=== PATIENT | female | born 1945 | race Hispanic/Latino ===

== ENCOUNTER 2019-08-16 11:16 | Emergency (ER) | payer OTHER ==
[~2019-08-16] VITALS: Ht 157.5 cm; Wt 68.9 kg
[~2019-08-16 11:16] MED LIST: BONIVA150 MG PO; DAILY VITAMIN1 EAC3 PO; DIOVAN320 MG PO; NIFEDIPINE ER30 MG PO; biotin PO
--- NOTE | 2019-08-16 11:53 | NUR ---
NOTIFIED COST ACCOUNTANT TO PAGE ULTRASOUND FOR VENOUS DOPPLER FOR RIGHT UPPER EXTREMITY.
[2019-08-16] MEDS ORDERED: HYZAAR 100-12.1 EACH PO (11:58)
--- NOTE | 2019-08-16 11:59 | NUR ---
PT STATES SHE HAS NOT TAKEN HER BP MEDS THIS MORNING PT STATES SHE TAKES LOSARTAN/HZTZ 100-12.5 MG 1 TAB QDAILY IN THE AM
[2019-08-16] MEDS ORDERED: LOSARTAN POTASSIUM 100 MG TAB PO ONE (12:30)
[2019-08-16 13:01] VITALS: BP 169/67
== END 2019-08-16 13:05 | disposition home or self-care (01) ==
LOC: ER 11:16
DX: R60.9 Edema, unspecified (principal); F03.90 Unspecified dementia, unspecified severity, without behavioral disturbance, psychotic disturbance, mood disturbance, and anxiety; I10 Essential (primary) hypertension; E78.5 Hyperlipidemia, unspecified
CPT/HCPCS: 93971; 99283

== ENCOUNTER 2021-10-18 12:39 | Inpatient (IN) | payer OTHER ==
[~2021-10-18] VITALS: Ht 157.5 cm; Wt 68.9 kg
[~2021-10-18 12:39] MED LIST changes: +HYZAAR 100-12.1 EACH PO
[2021-10-18 14:13] LABS: BASOPHILS # (AUTO) 0.1 (0.0-0.1); BASOPHILS % 0.5 % (0.0-1.0); EOSINOPHILS # (AUTO) 0.1 (0.0-0.4); EOSINOPHILS % 0.7 % (0.0-6.0); HEMATOCRIT 36.7 % (34.2-44.1); LYMPHOCYTES # (AUTO) 3.1 (1.0-3.2); LYMPHOCYTES % 26.4 % (18.0-39.1); MEAN CORPUSCULAR HEMOGLOBIN 29.6 pg (28-32); MEAN CORPUSCULAR HGB CONC 32.7 g/dL (31-35); MEAN CORPUSCULAR VOLUME 90.4 fL (81-99); MONOCYTES # (AUTO) 1.1 (0.2-0.8); MONOCYTES % 9.6 % (4.4-11.3); NEUTROPHILS # (AUTO) 7.2 (2.1-6.9); NEUTROPHILS % 62.5 % (38.7-80.0); PLATELET COUNT 275 x10e3/uL (140-360); RED BLOOD COUNT 4.06 x10e6/uL (3.6-5.1)
[2021-10-18 14:37] LABS: ALBUMIN 3.9 g/dL (3.5-5.0); ALBUMIN/GLOBULIN RATIO 0.8 (0.8-2.0); ANION GAP 18.9 mmol/L (8-16); CALCIUM 10.3 mg/dL (8.4-10.2); CREATININE, SERUM 0.92 mg/dL (0.57-1.11); POTASSIUM 4.9 mmol/L (3.5-5.1)
[2021-10-18 14:50] LABS: CREATINE KINASE MB 1.8 ng/mL (0-5.0)
[2021-10-18] MEDS ORDERED: LEVETIRACETAM 500MG/5ML VIAL 1,000 MG in SODIUM CHLORIDE 0.9% 100 ML IV ONE (16:00)
[2021-10-18 18:13] LABS: CLARITY,URINE HAZY (CLEAR); COLOR,URINE YELLOW (YELLOW); KETONES,URINE NEGATIVE (NEGATIVE); LEUKOCYTE ESTERASE ,URINE NEGATIVE (NEGATIVE); NITRITE,URINE POSITIVE (NEGATIVE); PROTEIN,URINE DIPSTICK NEGATIVE (NEGATIVE); URINE UROBILINOGEN 0.2 mg/dL (0.2 - 1)
[2021-10-18 18:28] LABS: BACTERIA,URINE MANY /HPF; RBC,URINE 0-5 /HPF (0-5); WBC,URINE (MAN) 0-5 /HPF (0-5)
[2021-10-18] MEDS ORDERED: HYDROCHLOROTH12.5 MG PO (21:10)
[2021-10-18] MEDS ORDERED: CALCIUM 600-D31 EAC1 PO (21:10)
[2021-10-18] MEDS ORDERED: NAMENDA10 MG PO (21:10)
[2021-10-18] MEDS ORDERED: OXYBUTYNIN CHLOR5 MG PO (21:10)
[2021-10-18] MEDS ORDERED: ATORVASTATIN CA10 MG PO (21:10)
[2021-10-18] MEDS ORDERED: ASPIRIN81 MG PO (21:10)
[2021-10-18] MEDS ORDERED: ARICEPT10 MG PO (21:10)
[2021-10-18] MEDS ORDERED: LEXAPRO5 MG PO (21:10)
[2021-10-18] MEDS ORDERED: QUETIAPINE FUMA25 MG PO (21:10)
[2021-10-18] MEDS ORDERED: DIOVAN160 MG PO (21:10)
[2021-10-18] MEDS ORDERED: NIFEDIPINE ER30 M1 PO (21:10)
[2021-10-18] MEDS ORDERED: DIOVAN HCT 3201 EAC1 PO (21:33)
[2021-10-18] MEDS: MEMANTINE 10 MG TAB PO SCH (22:01)
[2021-10-18] MEDS: NIFEDIPINE CR 30 MG TAB PO SCH (22:01)
[2021-10-18] MEDS: ATORVASTATIN 10 MG TAB PO SCH (22:01)
[2021-10-18] MEDS: DONEPEZIL HCL 5 MG TAB PO SCH (22:02)
[2021-10-18] MEDS: QUETIAPINE FUMARATE 25 MG TAB PO SCH (22:02)
[2021-10-18 22:05] VITALS: BP 131/55
[2021-10-19] VITALS (7 sets, daily range): BP systolic 127–148; BP diastolic 50–84
[2021-10-19] MEDS ORDERED: SODIUM CHLORIDE 0.9% 250ML 250 ML ONE (00:43)
[2021-10-19] MEDS: CEFTRIAXONE 1 GM in SODIUM CHLORIDE 0.9% 50ML 50 ML IV SCH ×2 (01:00→07:33)
[2021-10-19 05:01] LABS: BASOPHILS % 0.5 % (0.0-1.0); EOSINOPHILS # (AUTO) 0.1 (0.0-0.4); EOSINOPHILS % 1.7 % (0.0-6.0); HEMATOCRIT 32.9 % (34.2-44.1); LYMPHOCYTES # (AUTO) 2.8 (1.0-3.2); LYMPHOCYTES % 35.8 % (18.0-39.1); MEAN CORPUSCULAR HEMOGLOBIN 30.1 pg (28-32); MEAN CORPUSCULAR HGB CONC 33.4 g/dL (31-35); MEAN CORPUSCULAR VOLUME 89.9 fL (81-99); MONOCYTES % 12.2 % (4.4-11.3); NEUTROPHILS # (AUTO) 3.9 (2.1-6.9); NEUTROPHILS % 49.5 % (38.7-80.0); PLATELET COUNT 255 x10e3/uL (140-360); RED BLOOD COUNT 3.66 x10e6/uL (3.6-5.1); RED CELL DISTRIBUTION WIDTH 13.9 % (11.7-14.4)
[2021-10-19 05:36] LABS: ALBUMIN 3.1 g/dL (3.5-5.0); ALBUMIN/GLOBULIN RATIO 0.8 (0.8-2.0); ANION GAP 14.1 mmol/L (8-16); CALCIUM 9.4 mg/dL (8.4-10.2); CHOL/HDL RATIO 2.2 (3.0-3.6); CREATININE, SERUM 0.83 mg/dL (0.57-1.11); POTASSIUM 3.1 mmol/L (3.5-5.1)
[2021-10-19 06:16] LABS: CREATINE KINASE MB 1.3 ng/mL (0-5.0)
[2021-10-19] MEDS: OXYBUTYNIN CHLORIDE 5 MG TAB PO SCH (07:34)
[2021-10-19] MEDS: ASPIRIN 81 MG CHEW TAB PO SCH (07:34)
[2021-10-19] MEDS: DONEPEZIL HCL 5 MG TAB PO SCH ×2 (07:34→15:44)
[2021-10-19] MEDS: MEMANTINE 10 MG TAB PO SCH ×2 (07:36→15:44)
[2021-10-19] MEDS: ESCITALOPRAM OXALATE 10 MG TAB PO SCH (07:36)
[2021-10-19] MEDS: VALSARTAN 160 MG TAB PO SCH (07:45)
[2021-10-19] MEDS: HYDROCHLOROTHIAZIDE 25 MG TAB PO SCH (07:46)
[2021-10-19] MEDS ORDERED: GADOBENATE DIMEGLUMINE 1 ML IV ONE (10:16)
[2021-10-19] MEDS ORDERED: POTASSIUM CHLORIDE 10MEQ EA PO ONE (11:00)
[2021-10-19 14:35] LABS: CREATINE KINASE MB 1.6 ng/mL (0-5.0)
[2021-10-19] MEDS: NIFEDIPINE CR 30 MG TAB PO SCH (20:45)
[2021-10-19] MEDS: QUETIAPINE FUMARATE 25 MG TAB PO SCH (20:45)
[2021-10-19] MEDS: ATORVASTATIN 10 MG TAB PO SCH (20:45)
[2021-10-20] VITALS (7 sets, daily range): BP systolic 126–149; BP diastolic 49–69
[2021-10-20] MEDS ORDERED: POTASSIUM CHLORIDE 10MEQ EA PO NR (09:00)
[2021-10-20 09:30] LABS: BASOPHILS # (AUTO) 0.1 (0.0-0.1); BASOPHILS % 0.6 % (0.0-1.0); EOSINOPHILS # (AUTO) 0.1 (0.0-0.4); EOSINOPHILS % 0.7 % (0.0-6.0); HEMATOCRIT 35.7 % (34.2-44.1); HEMOGLOBIN 11.3 g/dL (12.0-16.0); LYMPHOCYTES # (AUTO) 2.1 (1.0-3.2); LYMPHOCYTES % 24.5 % (18.0-39.1); MEAN CORPUSCULAR HGB CONC 31.7 g/dL (31-35); MEAN CORPUSCULAR VOLUME 91.8 fL (81-99); MONOCYTES # (AUTO) 0.8 (0.2-0.8); MONOCYTES % 9.7 % (4.4-11.3); NEUTROPHILS # (AUTO) 5.6 (2.1-6.9); NEUTROPHILS % 64.4 % (38.7-80.0); PLATELET COUNT 261 x10e3/uL (140-360); RED BLOOD COUNT 3.89 x10e6/uL (3.6-5.1); RED CELL DISTRIBUTION WIDTH 14.2 % (11.7-14.4)
[2021-10-20] MEDS: ESCITALOPRAM OXALATE 10 MG TAB PO SCH (09:43)
[2021-10-20] MEDS: OXYBUTYNIN CHLORIDE 5 MG TAB PO SCH (09:43)
[2021-10-20] MEDS: LEVETIRACETAM 500 MG TAB PO SCH ×2 (09:43→17:16)
[2021-10-20] MEDS: VALSARTAN 160 MG TAB PO SCH (09:43)
[2021-10-20] MEDS: MEMANTINE 10 MG TAB PO SCH ×2 (09:43→17:16)
[2021-10-20] MEDS: ASPIRIN 81 MG CHEW TAB PO SCH (09:43)
[2021-10-20] MEDS: HYDROCHLOROTHIAZIDE 25 MG TAB PO SCH (09:43)
[2021-10-20] MEDS: DONEPEZIL HCL 5 MG TAB PO SCH ×2 (09:43→17:16)
[2021-10-20 10:08] LABS: ANION GAP 11.3 mmol/L (8-16); CALCIUM 10.1 mg/dL (8.4-10.2); CREATININE, SERUM 0.96 mg/dL (0.57-1.11); POTASSIUM 3.3 mmol/L (3.5-5.1)
[2021-10-20] MEDS: NIFEDIPINE CR 30 MG TAB PO SCH (21:14)
[2021-10-20] MEDS: QUETIAPINE FUMARATE 25 MG TAB PO SCH (21:14)
[2021-10-20] MEDS: ATORVASTATIN 10 MG TAB PO SCH (21:14)
[2021-10-21 00:38] VITALS: BP 135/47
[2021-10-21 05:35] VITALS: BP 137/54
[2021-10-21 08:00] VITALS: BP 126/58
[2021-10-21 08:14] VITALS: BP 126/58
[2021-10-21] MEDS: DONEPEZIL HCL 5 MG TAB PO SCH (09:44)
[2021-10-21] MEDS: VALSARTAN 160 MG TAB PO SCH (09:45)
[2021-10-21] MEDS: OXYBUTYNIN CHLORIDE 5 MG TAB PO SCH (09:45)
[2021-10-21] MEDS: ASPIRIN 81 MG CHEW TAB PO SCH (09:45)
[2021-10-21] MEDS: ESCITALOPRAM OXALATE 10 MG TAB PO SCH (09:46)
[2021-10-21] MEDS: LEVETIRACETAM 500 MG TAB PO SCH (09:46)
[2021-10-21] MEDS: HYDROCHLOROTHIAZIDE 25 MG TAB PO SCH (09:46)
[2021-10-21] MEDS: MEMANTINE 10 MG TAB PO SCH (09:47)
== END 2021-10-21 12:48 | disposition home or self-care (01) | DRG 373 ==
LOC: ER 13:44 → ERHOLD 16:03 → IMCU 20:04 → MED/SURG3 10-20 20:44
PROVIDERS: ADMIT Internal Medicine; ATTEND Internal Medicine
DX: B69.0 Cysticercosis of central nervous system (principal); G30.9 Alzheimer's disease, unspecified; F02.80 Dementia in other diseases classified elsewhere, unspecified severity, without behavioral disturbance, psychotic disturbance, mood disturbance, and anxiety; I10 Essential (primary) hypertension; E78.5 Hyperlipidemia, unspecified; Z88.2 Allergy status to sulfonamides
CPT/HCPCS: 36415; 70450; 70553; 71046; 80048; 80053; 80061; 81001; 82550; 82553; 82607; 82746; 84443; 84484; 85025; 93005; 93306; 93880; 94799; 99284; J0696; J7050; U0002

== ENCOUNTER → 2021-11-17 | Outpatient (CLI) | payer OTHER ==
[~2021-11-17] MED LIST changes: +ARICEPT10 MG PO; +ASPIRIN81 MG PO; +ATORVASTATIN CA10 MG PO; +CALCIUM 600-D31 EAC1 PO; +DIOVAN HCT 3201 EAC1 PO; +DIOVAN160 MG PO; +GADOBENATE DIMEGLUMINE 1 ML IV ONE; +HYDROCHLOROTH12.5 MG PO; +LEXAPRO5 MG PO; +LORAZEPAM INJ 2 MG/ML VIAL ONE; +NAMENDA10 MG PO; +NIFEDIPINE ER30 M1 PO; +OXYBUTYNIN CHLOR5 MG PO; +QUETIAPINE FUMA25 MG PO
[2021-11-17 10:43] LABS: CREATININE, SERUM 0.82 mg/dL (0.57-1.11)
== END ==
LOC: MRI 09:57
PROVIDERS: ATTEND Pediatrics
DX: G30.9 Alzheimer's disease, unspecified (principal); G93.40 Encephalopathy, unspecified; R29.6 Repeated falls; R44.3 Hallucinations, unspecified; R26.81 Unsteadiness on feet; R45.4 Irritability and anger; B69.0 Cysticercosis of central nervous system; R56.9 Unspecified convulsions
CPT/HCPCS: 36415; 70553; 82565; 84520; J2060

== ENCOUNTER 2021-11-21 12:48 | Inpatient (IN) | payer OTHER ==
[~2021-11-21] VITALS: Ht 157.5 cm; Wt 68.9 kg
[~2021-11-21 12:48] MED LIST changes: -GADOBENATE DIMEGLUMINE 1 ML IV ONE; -LORAZEPAM INJ 2 MG/ML VIAL ONE
[2021-11-21] MEDS ORDERED: ACETAMINOPHEN 325 MG TAB PO NR (13:00)
[2021-11-21] MEDS ORDERED: CEFTRIAXONE 1 GM VIAL IM ONE (13:15)
[2021-11-21] MEDS ORDERED: ACETAMINOPHEN 325 MG SUPP PR ONE (13:15)
[2021-11-21] MEDS ORDERED: SODIUM CHLORIDE 0.9% 1000ML 1,000 ML IV SCH (13:15)
[2021-11-21] MEDS ORDERED: SODIUM CHLORIDE 0.9% 100 ML ONE (13:23)
[2021-11-21 13:25] LABS: BASOPHILS % 0.5 % (0.0-1.0); EOSINOPHILS % 0.4 % (0.0-6.0); HEMATOCRIT 36.1 % (34.2-44.1); HEMOGLOBIN 11.6 g/dL (12.0-16.0); LYMPHOCYTES % 24.3 % (18.0-39.1); MEAN CORPUSCULAR HEMOGLOBIN 29.6 pg (28-32); MEAN CORPUSCULAR HGB CONC 32.1 g/dL (31-35); MEAN CORPUSCULAR VOLUME 92.1 fL (81-99); MONOCYTES # (AUTO) 1.1 (0.2-0.8); MONOCYTES % 12.6 % (4.4-11.3); NEUTROPHILS # (AUTO) 5.2 (2.1-6.9); NEUTROPHILS % 61.8 % (38.7-80.0); PLATELET COUNT 239 x10e3/uL (140-360); RED BLOOD COUNT 3.92 x10e6/uL (3.6-5.1); RED CELL DISTRIBUTION WIDTH 14.8 % (11.7-14.4)
[2021-11-21] MEDS ORDERED: CEFTRIAXONE 1 GM in SODIUM CHLORIDE 0.9% 50ML 50 ML IV ONE (13:30)
[2021-11-21 13:37] LABS: CLARITY,URINE CLOUDY (CLEAR); COLOR,URINE YELLOW (YELLOW); KETONES,URINE NEGATIVE (NEGATIVE); LEUKOCYTE ESTERASE ,URINE LARGE (NEGATIVE); NITRITE,URINE POSITIVE (NEGATIVE); PROTEIN,URINE DIPSTICK 2+ (NEGATIVE); URINE UROBILINOGEN 0.2 mg/dL (0.2 - 1)
[2021-11-21 13:48] LABS: ALBUMIN 3.2 g/dL (3.5-5.0); ALBUMIN/GLOBULIN RATIO 0.8 (0.8-2.0); ANION GAP 16.4 mmol/L (8-16); BACTERIA,URINE MANY /HPF; CALCIUM 9.8 mg/dL (8.4-10.2); CREATININE, SERUM 0.96 mg/dL (0.57-1.11); EPITHELIAL CELLS,URINE FEW /LPF; POTASSIUM 3.4 mmol/L (3.5-5.1); WBC,URINE (MAN) 21-50 /HPF (0-5)
[2021-11-21] MEDS ORDERED: DIOVAN160 MG PO (15:35)
[2021-11-21] MEDS ORDERED: LEVETIRACETAM500 MG PO (15:35)
[2021-11-21] MEDS ORDERED: HYDROCHLOROTHIA25 MG PO (15:35)
[2021-11-21] MEDS ORDERED: FOLIC ACID0.4 MG PO (15:36)
[2021-11-21] MEDS ORDERED: ATORVASTATIN CA10 MG PO (15:36)
[2021-11-21] MEDS ORDERED: ASPIRIN81 MG PO (15:36)
[2021-11-21] MEDS ORDERED: QUETIAPINE FUMA25 MG PO (15:36)
[2021-11-21] MEDS ORDERED: K DUR10 MEQ PO (15:37)
[2021-11-21 20:00] VITALS: BP 128/78
[2021-11-21 22:00] VITALS: BP 128/78
[2021-11-22] VITALS (9 sets, daily range): BP systolic 95–137; BP diastolic 50–111
[2021-11-22 05:29] LABS: BASOPHILS % 0.5 % (0.0-1.0); EOSINOPHILS % 0.1 % (0.0-6.0); HEMOGLOBIN 10.5 g/dL (12.0-16.0); LYMPHOCYTES # (AUTO) 1.9 (1.0-3.2); LYMPHOCYTES % 25.3 % (18.0-39.1); MEAN CORPUSCULAR HEMOGLOBIN 29.7 pg (28-32); MEAN CORPUSCULAR HGB CONC 33.9 g/dL (31-35); MEAN CORPUSCULAR VOLUME 87.8 fL (81-99); MONOCYTES # (AUTO) 1.2 (0.2-0.8); MONOCYTES % 15.7 % (4.4-11.3); NEUTROPHILS # (AUTO) 4.3 (2.1-6.9); PLATELET COUNT 221 x10e3/uL (140-360); RED BLOOD COUNT 3.53 x10e6/uL (3.6-5.1); RED CELL DISTRIBUTION WIDTH 14.7 % (11.7-14.4)
[2021-11-22 05:53] LABS: ANION GAP 13.1 mmol/L (8-16); CALCIUM 9.8 mg/dL (8.4-10.2); CREATININE, SERUM 0.77 mg/dL (0.57-1.11); POTASSIUM 3.1 mmol/L (3.5-5.1)
[2021-11-22] MEDS ORDERED: POTASSIUM CHLORIDE 10MEQ EA PO SCH (09:00)
[2021-11-22] MEDS ORDERED: LEVETIRACETAM 500 MG TAB PO SCH (09:00)
[2021-11-22] MEDS ORDERED: DONEPEZIL HCL 5 MG TAB PO SCH (09:00)
[2021-11-22] MEDS ORDERED: MEMANTINE 10 MG TAB PO SCH (09:00)
[2021-11-22] MEDS: CEFEPIME 1 GM in SODIUM CHLORIDE 0.9% 50ML 50 ML IV SCH ×2 (09:48→21:06)
[2021-11-22] MEDS ORDERED: SODIUM CHLORIDE 0.9% 250ML 250 ML ONE (09:57)
[2021-11-22] MEDS ORDERED: ACETAMINOPHEN 650 MG SUPP PR PRN (10:15)
[2021-11-22] MEDS: ASPIRIN 81 MG CHEW TAB PO SCH (14:42)
[2021-11-22] MEDS: OXYBUTYNIN CHLORIDE 5 MG TAB PO SCH (14:42)
[2021-11-22] MEDS: VALSARTAN 160 MG TAB PO SCH (14:43)
[2021-11-22] MEDS ORDERED: ATORVASTATIN 10 MG TAB PO SCH (21:00)
[2021-11-22] MEDS: DONEPEZIL HCL 5 MG TAB PO SCH (21:00)
[2021-11-22] MEDS ORDERED: QUETIAPINE FUMARATE 25 MG TAB PO SCH (21:00)
[2021-11-22] MEDS ORDERED: FOLIC ACID 1 MG TAB PO SCH (21:00)
[2021-11-22] MEDS: LEVETIRACETAM 500 MG TAB PO SCH (21:08)
[2021-11-22] MEDS: MEMANTINE 10 MG TAB PO SCH (21:09)
[2021-11-23] VITALS: BP 138/82
[2021-11-23 04:00] VITALS: BP 122/60
[2021-11-23 05:41] LABS: BASOPHILS % 0.5 % (0.0-1.0); EOSINOPHILS # (AUTO) 0.1 (0.0-0.4); EOSINOPHILS % 1.6 % (0.0-6.0); HEMATOCRIT 31.5 % (34.2-44.1); LYMPHOCYTES # (AUTO) 2.2 (1.0-3.2); LYMPHOCYTES % 33.7 % (18.0-39.1); MEAN CORPUSCULAR HEMOGLOBIN 29.2 pg (28-32); MEAN CORPUSCULAR HGB CONC 31.7 g/dL (31-35); MEAN CORPUSCULAR VOLUME 91.8 fL (81-99); MONOCYTES % 15.9 % (4.4-11.3); NEUTROPHILS # (AUTO) 3.1 (2.1-6.9); NEUTROPHILS % 47.8 % (38.7-80.0); PLATELET COUNT 234 x10e3/uL (140-360); RED BLOOD COUNT 3.43 x10e6/uL (3.6-5.1); RED CELL DISTRIBUTION WIDTH 15.1 % (11.7-14.4)
[2021-11-23 06:04] LABS: ANION GAP 12.6 mmol/L (8-16); POTASSIUM 3.6 mmol/L (3.5-5.1)
[2021-11-23 06:30] LABS: CALCIUM 9.4 mg/dL (8.4-10.2); CREATININE, SERUM 0.81 mg/dL (0.57-1.11)
[2021-11-23 07:39] VITALS: BP 137/57
[2021-11-23 08:04] VITALS: BP 137/57
[2021-11-23] MEDS: DONEPEZIL HCL 5 MG TAB PO SCH (09:17)
[2021-11-23] MEDS: ASPIRIN 81 MG CHEW TAB PO SCH (09:17)
[2021-11-23] MEDS: CEFEPIME 1 GM in SODIUM CHLORIDE 0.9% 50ML 50 ML IV SCH (09:17)
[2021-11-23] MEDS: OXYBUTYNIN CHLORIDE 5 MG TAB PO SCH (09:18)
[2021-11-23] MEDS: LEVETIRACETAM 500 MG TAB PO SCH (09:18)
[2021-11-23] MEDS: VALSARTAN 160 MG TAB PO SCH (09:18)
[2021-11-23] MEDS: MEMANTINE 10 MG TAB PO SCH (09:18)
[2021-11-23] MEDS ORDERED: KCL 20 MEQ PACKET/ ORAL SOLN PO SCH (09:45)
[2021-11-23 11:50] VITALS: BP 116/58
[2021-11-23] MEDS ORDERED: ACETAMINOPHEN 325 MG TAB PO PRN (14:15)
[2021-11-23 16:07] VITALS: BP 106/80
[2021-11-23] MEDS ORDERED: ZOFRAN4 MG PO (16:12)
[2021-11-23] MEDS ORDERED: KEFLEX125 MG/5 M PO (16:12)
[2021-11-24] MEDS ORDERED: CEFTRIAXONE 1 GM in SODIUM CHLORIDE 0.9% 50ML 50 ML IV SCH (09:00)
== END 2021-11-23 16:50 | disposition home or self-care (01) | DRG 177 ==
LOC: ER 13:02 → ERHOLD 16:28 → MED/SURG3 18:36
PROVIDERS: ADMIT Internal Medicine; ATTEND Internal Medicine
DX: J69.0 Pneumonitis due to inhalation of food and vomit (principal); G93.41 Metabolic encephalopathy; N39.0 Urinary tract infection, site not specified; B69.0 Cysticercosis of central nervous system; F02.81 Dementia in other diseases classified elsewhere, unspecified severity, with behavioral disturbance; I10 Essential (primary) hypertension; G30.9 Alzheimer's disease, unspecified; E78.5 Hyperlipidemia, unspecified; Z88.2 Allergy status to sulfonamides; E87.6 Hypokalemia; F01.50 Vascular dementia, unspecified severity, without behavioral disturbance, psychotic disturbance, mood disturbance, and anxiety; B96.20 Unspecified Escherichia coli [E. coli] as the cause of diseases classified elsewhere
CPT/HCPCS: 36415; 70450; 71045; 74230; 80048; 80053; 81001; 83605; 84484; 85025; 87040; 87086; 87186; 93005; 94799; 97139; 99285; J0692; J0696; J7030; J7050; U0002